=== PATIENT | female | born 2000 | race Caucasian/White ===

== ENCOUNTER 2024-10-02 22:55 | Emergency (ER) | payer MEDICAID, SELFPAY ==
[2024-10-02 22:57] VITALS: BP 98/71; PULSE 127; RESP 20; TEMP 36.7; O2SAT 100; BMI 38.5
--- NOTE | 2024-10-02 23:19 | RAD_ITS ---
PROCEDURE: CHEST PA AND LATERAL 10/02/2024 REASON FOR EXAM: CHEST PAIN TECHNIQUE: Frontal and lateral views of the chest. 3 total images COMPARISON: None available FINDINGS: The lungs appear clear. No pneumothorax or pleural effusion. The cardiac and mediastinal contours appear within limits. The visualized osseous structures appear within limits. RAD/Chest PA and Lateral IMPRESSION: No evidence of acute traumatic injury Reading Location: [id number]
--- NOTE | 2024-10-02 23:19 | RAD_ITS ---
PROCEDURE: THORACIC SPINE 3 VIEWS 10/02/2024 REASON FOR EXAM: PAIN TECHNIQUE: 3 views of the thoracic spine. COMPARISON: None FINDINGS: Normal thoracic vertebral body heights. Disc space heights are preserved. Normal alignment. Paraspinal soft tissues are unremarkable. Other: RAD/Thoracic Spine 3 Views IMPRESSION: NO EVIDENCE OF ACUTE THORACIC FRACTURE. Reading Location: [facility]
--- NOTE | 2024-10-02 23:19 | RAD_ITS ---
PROCEDURE: LUMBAR SPINE 2 OR 3 VIEWS 10/02/2024 REASON FOR EXAM: PAIN TECHNIQUE: 3 view(s) of the lumbar spine COMPARISON: None FINDINGS: Vertebrae: No acute fracture. Lumbar vertebral body heights are preserved. Discs: Disc space heights are preserved. Alignment: Lumbar vertebral alignment is maintained. Other: RAD/Lumbar Spine 2 or 3 Views IMPRESSION: NO EVIDENCE OF LUMBAR FRACTURE. Reading Location: [facility]
[2024-10-02] MEDS: Acetaminophen 650 MG/20 ML UDC PO (23:44)
[2024-10-02 23:45] VITALS: BP 132/81; PULSE 111; RESP 16; O2SAT 98
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
[2024-10-03 00:53] VITALS: BP 136/75; PULSE 98; RESP 16; TEMP 36.7; O2SAT 98
== END 2024-10-03 00:59 | disposition home or self-care (01) ==
PROVIDERS: Emergency Provider Emergency Medicine; PCP Family Medicine; Visit Provider Emergency Medicine
DX: T14.8XXA Other injury of unspecified body region, initial encounter (principal); S20.319A Abrasion of unspecified front wall of thorax, initial encounter; S30.811A Abrasion of abdominal wall, initial encounter; V49.9XXA Car occupant (driver) (passenger) injured in unspecified traffic accident, initial encounter; W22.12XA Striking against or struck by front passenger side automobile airbag, initial encounter; F41.1 Generalized anxiety disorder; E66.9 Obesity, unspecified; Z68.38 Body mass index [BMI] 38.0-38.9, adult
CPT/HCPCS: 71046; 72072; 72100; 99284